=== PATIENT | male | born 1975 | race Caucasian/White ===

== ENCOUNTER 2018-07-21 07:01 | Emergency (ER) | payer BC, OTHER ==
[2018-07-21 07:24] VITALS: BP 148/69
--- NOTE | 2018-07-21 08:07 | EDM.PDOC ---
ED HPI GENERAL MEDICAL PROBLEM - General Chief Complaint: Chest Pain Stated Complaint: R SIDE RIB PAIN Time Seen by Provider: 07/21/18 07:15 Source of Information: Reports: Patient History Limitations: Reports: No Limitations - History of Present Illness INITIAL COMMENTS - FREE TEXT/NARRATIVE: The patient presents with right anterior chest pain. He was messing around with a brent and jumped off a bed on top of his brent and got a knee to the right anterior chest. He did cough up a little blood that night but nothing since. He has no cough or fever now. He does have pain with deep breathing. He does not feel short of breath. Onset: Sudden Duration: Day(s): (Friday) Location: Reports: Chest Quality: Reports: Sharp Severity: Moderate Improves with: Reports: Immobilization Worsens with: Reports: Breathing Context: Reports: Trauma (He got a knee to the chest) Associated Symptoms: Reports: No Other Symptoms Right Chest Pain Score (Numeric/FACES): 7 - Related Data Allergies Allergy/AdvReac Type Severity Reaction Status Date / Time cephalexin [Cephalexin] Allergy Hives Verified 07/21/18 07:24 Home Meds: Home Meds Hydrocodone/Acetaminophen [Hydrocodon-Acetaminophen 5-325] 1 - 2 each PO Q6HR PRN #20 tablet 07/21/18 [Rx] Past Medical History - Past Health History Medical/Surgical History: Denies Medical/Surgical History Cardiovascular History: Reports: High Cholesterol Respiratory History: Reports: Pneumonia, Recurrent Gastrointestinal History: Reports: GERD Musculoskeletal History: Reports: Fracture Other Musculoskeletal History: broken hand R - Infectious Disease History Infectious Disease History: Reports: Chicken Pox - Past Surgical History Other HEENT Surgeries/Procedures: tonsilectomy and adenoidectomy GI Surgical History: Reports: EGD, Brent Fundoplication Male Surgical History: Reports: Vasectomy Social & Family History - Tobacco Use Smoking Status *Q: Never Smoker - Recreational Drug Use Recreational Drug Use: No ED ROS GENERAL - Review of Systems Review Of Systems: See Below Constitutional: Reports: No Symptoms HEENT: Reports: No Symptoms Respiratory: Reports: No Symptoms Cardiovascular: Reports: Chest Pain (Right anterior chest) Endocrine: Reports: No Symptoms GI/Abdominal: Reports: No Symptoms : Reports: No Symptoms Musculoskeletal: Reports: No Symptoms ED EXAM, GENERAL - Physical Exam Exam: See Below Exam Limited By: No Limitations General Appearance: Alert, No Apparent Distress Ears: Normal External Exam Nose: Normal Inspection Head: Atraumatic, Normocephalic Neck: Normal Inspection, Supple, Non-Tender Respiratory/Chest: No Respiratory Distress, Lungs Clear, Normal Breath Sounds Cardiovascular: Regular Rate, Rhythm, No Edema, No Murmur, Other (Pain upon palpation to the right anterior chest) GI/Abdominal: Soft, Non-Tender, No Organomegaly, No Mass Back Exam: Normal Inspection Extremities: Normal Inspection Course - Vital Signs Last Recorded V/S: Last Vital Signs Temp 97.4 F 07/21/18 07:22 Pulse 60 07/21/18 07:22 Resp 16 07/21/18 07:22 BP 148/69 H 07/21/18 07:22 Pulse Ox 98 07/21/18 07:22 - Orders/Labs/Meds Orders: Active Orders 24 hr Category Date Time Status Ribs 2V w Chest Rt [CR] Stat Exams 07/21/18 07:24 Taken - Re-Assessments/Exams Free Text/Narrative Re-Assessment/Exam: 07/21/18 08:06 I ordered an x-ray of his chest and I do not see a fracture of pneumothorax. I will get him on an incentive spyrometer and something for pain. Departure - Departure Time of Disposition: 08:25 Disposition: Home, Self-Care 01 Condition: Good Clinical Impression: Chest wall contusion Qualifiers: Encounter type: initial encounter Laterality: right Qualified Code(s): S20.211A - Contusion of right front wall of thorax, initial encounter Prescriptions: Hydrocodone/Acetaminophen [Hydrocodon-Acetaminophen 5-325] 1 - 2 each PO Q6HR PRN #20 tablet PRN Reason: Pain Referrals: Pradip Saldaña Jr, MD [Primary Care Provider] - 1 Week Forms: ED Department Discharge Additional Instructions: Use the incentive spirometer 10 breaths every other hour while awake for 5 days. Take the hydrocodone as needed for pain. Please return if you are worse such as more pain, cough or fever. - My Orders Last 24 Hours: My Active Orders 07/21/18 07:24 Ribs 2V w Chest Rt [CR] Stat - Assessment/Plan Last 24 Hours: My Active Orders 07/21/18 07:24 Ribs 2V w Chest Rt [CR] Stat
--- NOTE | 2018-07-21 09:39 | CR ---
Chest and right ribs: Frontal view of the chest is obtained as well as three views of the right ribs. Comparison: No previous rib exam, previous chest x-ray of 10/02/15. Heart size and mediastinum are normal. Lungs are clear. Minimal thoracic scoliosis is seen. No discrete right-sided rib abnormality is seen. Impression: 1. Nothing acute seen on frontal chest x-ray. No discrete rib abnormality is appreciated. Diagnostic code #2
== END 2018-07-21 08:34 | disposition home or self-care (01) ==
LOC: JD.ED 07:01
DX: S20.211A Contusion of right front wall of thorax, initial encounter (principal); Z88.1 Allergy status to other antibiotic agents; E78.00 Pure hypercholesterolemia, unspecified; X58.XXXA Exposure to other specified factors, initial encounter
CPT/HCPCS: 71101-26-RT; 71101-RT; 99283; 99283-25

== ENCOUNTER 2019-09-19 08:32 | Emergency (ER) | payer OTHER ==
[2019-09-19 08:47] VITALS: PULSE 76
[2019-09-19] MEDS ORDERED: Nitroglycerin 0.4 MG Tab.SL SL ONE (09:05)
[2019-09-19] MEDS ORDERED: Aspirin 81 MG Tab.Chew PO ONE (09:05)
--- NOTE | 2019-09-19 09:09 | EDM.PDOC ---
ED HPI GENERAL MEDICAL PROBLEM - General Chief Complaint: Chest Pain Stated Complaint: PRESSURE IN CHEST, CHEST PAIN X 1 WEEK Time Seen by Provider: 09/19/19 09:03 - History of Present Illness INITIAL COMMENTS - FREE TEXT/NARRATIVE: 43-year-old male presents the emergency room with chest pain. This has been going on for about a week today it is been a little worse than normal. He describes it as a pressure like something on his chest it is pretty mild he rates it at a 2/10 at this point. And this is a little worse than it has been. Patient has no prior history of coronary artery disease he is treated for hyperlipidemia he has no history of hypertension. Patient does not smoke or use illicit drugs. Pain is not brought on or worsened by activity. Patient has a positive family history of coronary artery disease in his father who had a couple MIs bypass surgery and stents starting at age 70. Bilateral Chest Pain Score (Numeric/FACES): 3 - Related Data Allergies Allergy/AdvReac Type Severity Reaction Status Date / Time cephalexin [Cephalexin] Allergy Hives Verified 09/19/19 08:40 Home Meds: Home Meds . [No Known Home Meds] 09/19/19 [History] Past Medical History - Past Health History Medical/Surgical History: Denies Medical/Surgical History Cardiovascular History: Reports: High Cholesterol Respiratory History: Reports: Pneumonia, Recurrent Gastrointestinal History: Reports: GERD Musculoskeletal History: Reports: Fracture Other Musculoskeletal History: broken hand R - Infectious Disease History Infectious Disease History: Reports: Chicken Pox - Past Surgical History Other HEENT Surgeries/Procedures: tonsilectomy and adenoidectomy GI Surgical History: Reports: EGD, Brent Fundoplication Male Surgical History: Reports: Vasectomy Social & Family History - Family History Family Medical History: Noncontributory - Tobacco Use Smoking Status *Q: Never Smoker Second Hand Smoke Exposure: No - Caffeine Use Caffeine Use: Reports: Energy Drinks, Soda - Recreational Drug Use Recreational Drug Use: No ED ROS GENERAL - Review of Systems Review Of Systems: See Below Constitutional: Reports: No Symptoms HEENT: Reports: No Symptoms Respiratory: Reports: No Symptoms Cardiovascular: Reports: Chest Pain. Denies: Dyspnea on Exertion, Edema, Palpitations GI/Abdominal: Reports: No Symptoms Neurological: Reports: No Symptoms ED EXAM, GENERAL - Physical Exam Exam: See Below Exam Limited By: No Limitations General Appearance: Alert, No Apparent Distress Head: Atraumatic, Normocephalic Neck: Normal Inspection, Supple, Non-Tender, Full Range of Motion. No: Lymphadenopathy (L), Lymphadenopathy (R) Respiratory/Chest: No Respiratory Distress, Lungs Clear, Normal Breath Sounds Cardiovascular: Regular Rate, Rhythm, No Edema, No Murmur GI/Abdominal: Normal Bowel Sounds, Soft, Non-Tender, Other (Obese) EKG INTERPRETATION EKG Date: 09/19/19 Rhythm: NSR Roberts: Normal P-Wave: Present QRS: Normal ST-T: Normal QT: Normal Comparison: No Change (From October 2015) EKG Interpretation Comments: Nonacute nondiagnostic EKG. Borderline EKG Course - Vital Signs Last Recorded V/S: Last Vital Signs Temp 36.2 C 09/19/19 08:38 Pulse 76 09/19/19 08:38 Resp 18 09/19/19 08:38 BP 118/95 H 09/19/19 09:10 Pulse Ox 96 09/19/19 08:38 - Orders/Labs/Meds Orders: Active Orders 24 hr Category Date Time Status EKG Documentation Completion [RC] ASDIRECTED Care 09/19/19 08:40 Active Chest 1V Frontal [CR] Stat Exams 09/19/19 09:01 Taken EKG 12 Lead [EK] Stat Ther 09/19/19 08:40 Ordered Labs: Laboratory Tests 09/19/19 09/19/19 09/19/19 Range/Units 08:40 08:40 08:40 WBC 4.84 (4.23-9.07) K/mm3 RBC 5.43 (4.63-6.08) M/mm3 Hgb 16.1 (13.7-17.5) gm/dl Hct 46.6 (40.1-51.0) % MCV 85.8 (79.0-92.2) fl MCH 29.7 (25.7-32.2) pg MCHC 34.5 (32.2-35.5) g/dl RDW Std Deviation 42.1 (35.1-43.9) fL Plt Count 245 (163-337) K/mm3 MPV 9.9 (9.4-12.3) fl Neut % (Auto) 40.9 (34.0-67.9) % Lymph % (Auto) 46.9 (21.8-53.1) % [place] % (Auto) 9.3 (5.3-12.2) % Eos % (Auto) 2.5 (0.8-7.0) Baso % (Auto) 0.4 (0.1-1.2) % Neut # (Auto) 1.98 (1.78-5.38) K/mm3 Lymph # (Auto) 2.27 (1.32-3.57) K/mm3 [place] # (Auto) 0.45 (0.30-0.82) K/mm3 Eos # (Auto) 0.12 (0.04-0.54) K/mm3 Baso # (Auto) 0.02 (0.01-0.08) K/mm3 PT 10.1 (9.7-12.0) SECONDS INR 0.93 APTT (22-31) SECONDS D-Dimer, Quantitative (0.19-0.50) mg/L Sodium 142 (136-145) mEq/L Potassium 4.0 (3.5-5.1) mEq/L Chloride 105 (98-107) mEq/L Carbon Dioxide 26 (21-32) mEq/L Anion Gap 15.0 (5-15) BUN 22 H (7-18) mg/dL Creatinine 1.1 (0.7-1.3) mg/dL Est Cr Clr Drug Dosing 90.32 mL/min Estimated GFR (MDRD) > 60 (>60) mL/min BUN/Creatinine Ratio 20.0 H (14-18) Glucose 97 (74-106) mg/dL Calcium 9.0 (8.5-10.1) mg/dL Magnesium 2.0 (1.8-2.4) mg/dl Total Bilirubin 1.4 H (0.2-1.0) mg/dL AST 24 (15-37) U/L ALT 69 H (16-63) U/L Alkaline Phosphatase 70 (46-116) U/L Troponin I < 0.017 (0.00-0.056) ng/mL C-Reactive Protein <0.2 (<1.0) mg/dL Total Protein 7.7 (6.4-8.2) g/dl Albumin 4.2 (3.4-5.0) g/dl Globulin 3.5 gm/dL Albumin/Globulin Ratio 1.2 (1-2) 09/19/19 Range/Units 08:40 WBC (4.23-9.07) K/mm3 RBC (4.63-6.08) M/mm3 Hgb (13.7-17.5) gm/dl Hct (40.1-51.0) % MCV (79.0-92.2) fl MCH (25.7-32.2) pg MCHC (32.2-35.5) g/dl RDW Std Deviation (35.1-43.9) fL Plt Count (163-337) K/mm3 MPV (9.4-12.3) fl Neut % (Auto) (34.0-67.9) % Lymph % (Auto) (21.8-53.1) % [place] % (Auto) (5.3-12.2) % Eos % (Auto) (0.8-7.0) Baso % (Auto) (0.1-1.2) % Neut # (Auto) (1.78-5.38) K/mm3 Lymph # (Auto) (1.32-3.57) K/mm3 [place] # (Auto) (0.30-0.82) K/mm3 Eos # (Auto) (0.04-0.54) K/mm3 Baso # (Auto) (0.01-0.08) K/mm3 PT (9.7-12.0) SECONDS INR APTT 25 (22-31) SECONDS D-Dimer, Quantitative < 0.19 L (0.19-0.50) mg/L Sodium (136-145) mEq/L Potassium (3.5-5.1) mEq/L Chloride (98-107) mEq/L Carbon Dioxide (21-32) mEq/L Anion Gap (5-15) BUN (7-18) mg/dL Creatinine (0.7-1.3) mg/dL Est Cr Clr Drug Dosing mL/min Estimated GFR (MDRD) (>60) mL/min BUN/Creatinine Ratio (14-18) Glucose (74-106) mg/dL Calcium (8.5-10.1) mg/dL Magnesium (1.8-2.4) mg/dl Total Bilirubin (0.2-1.0) mg/dL AST (15-37) U/L ALT (16-63) U/L Alkaline Phosphatase (46-116) U/L Troponin I (0.00-0.056) ng/mL C-Reactive Protein (<1.0) mg/dL Total Protein (6.4-8.2) g/dl Albumin (3.4-5.0) g/dl Globulin gm/dL Albumin/Globulin Ratio (1-2) Meds: Medications Discontinued Medications Generic Name Dose Route Start Last Admin Trade Name Mynor PRN Reason Stop Dose Admin Aspirin 324 mg 09/19/19 09:05 09/19/19 09:10 Aspirin PO 09/19/19 09:06 324 mg ONETIME ONE Administration Nitroglycerin 0.4 mg 09/19/19 09:05 09/19/19 09:10 Nitrostat SL 09/19/19 09:06 0.4 mg ONETIME ONE Administration - Re-Assessments/Exams Free Text/Narrative Re-Assessment/Exam: 09/19/19 09:19 Patient was given aspirin and a single nitro as his blood pressure is not given me a lot of room to work with he had some improvement with the chest pressure with a single nitro after this wore off he is maintaining some improvement. 09/19/19 09:54 EKG shows no acute changes no significant change from October 2015 troponin negative d-dimer negative CRP normal chest x-ray shows no acute changes. The patient has a heart score of 3. Did discuss this with the patient he is comfortable going home he would like to follow-up with a stress Cardiolite however. I will submit an order for this. Departure - Departure Time of Disposition: 10:03 Disposition: Home, Self-Care 01 Clinical Impression: Chest pain Qualifiers: Chest pain type: unspecified Qualified Code(s): R07.9 - Chest pain, unspecified Referrals: Pradip Saldaña Jr, MD [Primary Care Provider] - Forms: ED Department Discharge Additional Instructions: Return to the emergency room with any questions problems or worsening symptoms. Start baby aspirin, 81 mg enteric-coated, 1 every morning. You should be contacted in the next couple of days to schedule a stress test. Follow-up with Dr. Saldaña several days after this is done. Tylenol as needed for the discomfort. Sepsis Event Note - Evaluation Sepsis Screening Result: No Definite Risk - Focused Exam Vital Signs: Vital Signs Temp Pulse Resp BP BP Pulse Ox 09/19/19 09:10 118/95 H 09/19/19 08:38 36.2 C 76 18 134/91 H 96 Date Exam was Performed: 09/19/19 Time Exam was Performed: 10:05 - My Orders Last 24 Hours: My Active Orders 09/19/19 08:40 EKG Documentation Completion [RC] ASDIRECTED EKG 12 Lead [EK] Stat 09/19/19 09:01 Chest 1V Frontal [CR] Stat - Assessment/Plan Last 24 Hours: My Active Orders 09/19/19 08:40 EKG Documentation Completion [RC] ASDIRECTED EKG 12 Lead [EK] Stat 09/19/19 09:01 Chest 1V Frontal [CR] Stat
[2019-09-19 10:24] VITALS: BP 110/86
--- NOTE | 2019-09-19 10:28 | CR ---
Chest: Portable view of the chest was obtained. Comparison: Prior chest x-ray of 0 to. Heart size and mediastinum are normal. Lungs are clear with no acute parenchymal change. Bony structures are grossly intact. Impression: 1. Nothing acute is appreciated on portable chest x-ray. Diagnostic code #1 This report was dictated in MDT
== END 2019-09-19 10:15 | disposition home or self-care (01) ==
LOC: JD.ED 08:32
DX: R07.9 Chest pain, unspecified (principal); Z88.1 Allergy status to other antibiotic agents
CPT/HCPCS: 36415; 71045; 80053; 83735; 84484; 85025; 85379; 85610; 85730; 86140; 93005; 99285; A9270; 93010; 99284